=== PATIENT | female | born 1995 | race Caucasian/White ===

== ENCOUNTER 2017-01-24 17:04 | Inpatient (IN) | payer MEDICAID, OTHER ==
[~2017-01-24] VITALS: Ht 152.4 cm; Wt 68.8 kg
[2017-01-24 17:29] VITALS: BP 100/59; PULSE 130; RESP 20
[2017-01-24 17:30] VITALS: Ht 152.4 cm; Wt 68.8 kg
[2017-01-24] MEDS ORDERED: FER325 PO (17:32)
[2017-01-24] MEDS ORDERED: PREN-93 PO (17:32)
[2017-01-24] MEDS ORDERED: CALC600T11 PO (17:33)
[2017-01-24] MEDS ORDERED: ACETAMINOPHEN 1000MG/100ML IV 100 ML IVPB ONE (18:30)
[2017-01-24] MEDS ORDERED: LACTATED RINGER'S 1,000 ML IV SCH (18:30)
[2017-01-24 19:05] LABS: ADD SCAN DIFF NO
[2017-01-24 19:07] LABS: ABNORMAL IP MESSAGE 1; BASOPHILS % 0.1 % (0.0-2.0); EOSINOPHILS % 0.2 % (0.0-7.0); HEMATOCRIT 35.5 % (37.0-47.0); HEMOGLOBIN 11.7 g/dl (12.0-16.0); LYMPHOCYTES # 0.4 10^3/ul (0.8-2.9); LYMPHOCYTES % 4.5 % (15.0-51.0); MEAN CORPUSCULAR HEMOGLOBIN 29.8 pg (29.0-33.0); MEAN CORPUSCULAR VOLUME 90.3 fl (82.0-101.0); MEAN PLATELET VOLUME 10.2 fl (7.4-10.4); MONOCYTE # 0.5 10^3/ul (0.3-0.9); MONOCYTES % 5.7 % (0.0-11.0); NEUTROPHILS % 88.9 % (39.0-77.0); PLATELET COUNT 193 10^3/UL (140-415); RED BLOOD COUNT 3.93 10^6/ul (4.20-5.40); RED CELL DISTRIBUTION WIDTH 13.7 % (11.5-14.5); WHITE BLOOD COUNT 9.1 10^3/ul (4.8-10.8)
[2017-01-24 19:18] LABS: ADD UMIC YES; URINE BILIRUBIN (Dip) NEGATIVE (NEGATIVE); URINE BLOOD (Dip) NEGATIVE (NEGATIVE); URINE COLOR LT. YELLOW (YELLOW); URINE GLUCOSE (Dip) NEGATIVE (NEGATIVE); URINE KETONES (Dip) NEGATIVE (NEGATIVE); URINE LEUKOCYTE ESTERASE (Dip) TRACE (NEGATIVE); URINE NITRITE (Dip) NEGATIVE (NEGATIVE); URINE TOTAL PROTEIN (Dip) NEGATIVE (NEGATIVE); URINE UROBILINOGEN (Dip) 0.2 E.U./dL (0.1-1.0)
[2017-01-24] MEDS ORDERED: SOD CHLORIDE 0.9% 1,000 ML IV SCH (19:30)
[2017-01-24 19:42] LABS: BACTERIA,URINE FEW; SQUAMOUS EPITHELIAL CELL,UR MODERATE; URINE RBCS NONE SEEN /HPF (0)
--- NOTE | 2017-01-24 19:50 | HP ---
Date/Time of Note Date/Time of Note DATE: 01/24/17 TIME: 19:41 OB - History Hx of Present Free Text/Dictation C/O onset of fever started [id number] Am 01/24/17 Denies GI and symptoms Estimated Due Date: Jun 05, 2017 : 3 Para: 1 Spontaneous : 1 Care: Other (uneventful) Ultrasounds: Other (no information ) Obstetrical Complications: Other (claims none ) Medical Complications: Other (claims none ) Past Family/Social History * Past Medical, Surgical, Family and Obstetric Histories reviewed from chart. OB Admission Exam Vital Signs Vital Signs Vital Signs Date Time Temp Pulse Resp B/P Pulse Ox O2 Delivery O2 Flow Rate FiO2 01/24/17 17:29 100.1 130 20 100/59 Room Air Physical Exam HEENT: WNL Heart: Rhythm Normal Lungs: Clear, Equal Abdomen: WNL Extremities: Normal Reflexes: Normal Cervical Dilatation: None Effacement: 0% Station: Ballotable Membranes: Intact Last 72 hours Lab Results CBC & BMP 01/24/17 18:43 OB Assessment/Plan Reason for admission: other Other Assessment: fever possible GI or symptoms Other plan: IV ABs temperature control blood + urine culture U/S + cervical length SANDRA SEVERINO MD Jan 24, 2017 19:50
--- NOTE | 2017-01-24 20:20 | RADRPT ---
PROCEDURE: US OB limited. CLINICAL INDICATION: Pain. TECHNIQUE: Multiple transabdominal sonographic images of the pelvis were obtained. . COMPARISON: 01/16/2017. FINDINGS: There is a single intrauterine in cephalic presentation with heart motion of 168 andrews ts per minute. The placenta is anteriorly located without evidence of previa or abruption. Amnioti c fluid amount is normal with a single pocket measuring 5.0 cm. The cervix is closed and measures a pproximately 4.6 cm in length. Measurements were made in order to determine age. The results are as follows: BPD = 5.07 cm, 21 weeks 3 days HC = 18.72 cm, 21 weeks 0 days AC = 16.59 cm, 21 weeks 4 days FL = 3.59 cm, 21 weeks 3 days EFW = 425.27 g, 50 ounces, 61.9% IMPRESSION: Single live intrauterine measuring 21 weeks 3 days using current ultrasound measurements w ith an estimated date of delivery of 06/03/2017. RPTAT: HLST .Mary Matthew MD, Date Time Electronically viewed and signed by .Mary Matthew MD, on 01/24/2017 20:20 .T/
[2017-01-24] MEDS ORDERED: AL HYDROX/MG HYDROX/SIMETH 30 ML CUP PO PRN (20:30)
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
[2017-01-24] MEDS: SOD CHLORIDE 0.9% 1,000 ML IV SCH (21:19)
[2017-01-24] MEDS: CEFTRIAXONE 1 GM/50 ML (PMX) 50 ML IVPB SCH (21:41)
[2017-01-24] MEDS: ACETAMINOPHEN 325 MG TAB PO PRN (23:37)
[2017-01-25] MEDS: SOD CHLORIDE 0.9% 1,000 ML IV SCH ×4 (03:08→19:15)
[2017-01-25] MEDS: ACETAMINOPHEN 325 MG TAB PO PRN ×3 (06:24→12:12)
[2017-01-25] MEDS: SENNA TAB PO SCH (09:00)
[2017-01-25] MEDS: DOCUSATE SODIUM 100 MG CAP PO SCH (09:00)
[2017-01-25] MEDS: MULTIVIT/MIN/FOLATE/IRON/PREN TAB PO SCH (09:00)
[2017-01-25] MEDS ORDERED: DIPHENOXYLATE/ATROPINE TAB PO PRN ×2 (13:30→17:00)
--- NOTE | 2017-01-25 13:54 | PN ---
Date/Time of Note Date/Time of Note DATE: 01/25/17 TIME: 13:52 OB Subjective Subjective Subjective No more C/O fever C/O diarrhea OB Objective Objective Objective VSS afebrile after admission P/E is unchanged OB Assessment/Plan Other Assessment: Fever, possibly GI origin Other plan: continue to observe and Rx symptomatically until culture results are back SANDRA SEVERINO MD Jan 25, 2017 13:54
[2017-01-25 14:16] LABS: ADD SCAN DIFF NO
[2017-01-25 14:22] LABS: BASOPHILS % 0.1 % (0.0-2.0); HEMATOCRIT 29.9 % (37.0-47.0); LYMPHOCYTES # 0.8 10^3/ul (0.8-2.9); LYMPHOCYTES % 8.2 % (15.0-51.0); MEAN CORPUSCULAR HGB CONC 33.4 g/dl (32.0-37.0); MEAN CORPUSCULAR VOLUME 89.8 fl (82.0-101.0); MEAN PLATELET VOLUME 10.2 fl (7.4-10.4); MONOCYTE # 0.4 10^3/ul (0.3-0.9); MONOCYTES % 4.1 % (0.0-11.0); NEUTROPHIL # 8.9 10^3/ul (1.6-7.5); NEUTROPHILS % 87.2 % (39.0-77.0); PLATELET COUNT 165 10^3/UL (140-415); RED BLOOD COUNT 3.33 10^6/ul (4.20-5.40); RED CELL DISTRIBUTION WIDTH 13.8 % (11.5-14.5); WHITE BLOOD COUNT 10.2 10^3/ul (4.8-10.8)
[2017-01-25] MEDS: CEFTRIAXONE 1 GM/50 ML (PMX) 50 ML IVPB SCH (20:06)
[2017-01-26] MEDS: SOD CHLORIDE 0.9% 1,000 ML IV SCH ×3 (02:58→17:58)
[2017-01-26] MEDS: DOCUSATE SODIUM 100 MG CAP PO SCH (09:00)
[2017-01-26] MEDS: SENNA TAB PO SCH (09:00)
[2017-01-26] MEDS: MULTIVIT/MIN/FOLATE/IRON/PREN TAB PO SCH (09:51)
--- NOTE | 2017-01-26 17:20 | PN ---
Date/Time of Note Date/Time of Note DATE: 01/26/17 TIME: 17:18 OB Subjective Subjective Subjective wants to go home missing her daughter OB Objective Objective Objective T max: 100 patient is totally asymptomatic still has mod left shift on CBC will repeat CBC and continue to observe SANDRA SEVERINO MD Jan 26, 2017 17:20
[2017-01-26 17:26] LABS: ADD SCAN DIFF NO
[2017-01-26 17:35] LABS: BASOPHILS % 0.2 % (0.0-2.0); EOSINOPHILS % 0.3 % (0.0-7.0); HEMATOCRIT 31.3 % (37.0-47.0); HEMOGLOBIN 10.7 g/dl (12.0-16.0); LYMPHOCYTES # 1.4 10^3/ul (0.8-2.9); LYMPHOCYTES % 23.5 % (15.0-51.0); MEAN CORPUSCULAR HEMOGLOBIN 31.1 pg (29.0-33.0); MEAN CORPUSCULAR HGB CONC 34.2 g/dl (32.0-37.0); MEAN PLATELET VOLUME 10.3 fl (7.4-10.4); MONOCYTE # 0.4 10^3/ul (0.3-0.9); NEUTROPHIL # 4.2 10^3/ul (1.6-7.5); NEUTROPHILS % 68.8 % (39.0-77.0); PLATELET COUNT 164 10^3/UL (140-415); RED BLOOD COUNT 3.44 10^6/ul (4.20-5.40); RED CELL DISTRIBUTION WIDTH 14.2 % (11.5-14.5)
[2017-01-26] MEDS: ACETAMINOPHEN 325 MG TAB PO PRN (19:38)
[2017-01-26] MEDS: CEFTRIAXONE 1 GM/50 ML (PMX) 50 ML IVPB SCH (19:39)
[2017-01-27] MEDS: SOD CHLORIDE 0.9% 1,000 ML IV SCH ×2 (03:09→11:30)
[2017-01-27] MEDS: SENNA TAB PO SCH (09:01)
[2017-01-27] MEDS: DOCUSATE SODIUM 100 MG CAP PO SCH (09:01)
[2017-01-27] MEDS: MULTIVIT/MIN/FOLATE/IRON/PREN TAB PO SCH (09:01)
--- NOTE | 2017-01-27 16:29 | DS ---
Date/Time of Note Date/Time of Note DATE: 01/27/17 TIME: 16:27 Obstetrical Discharge Record Final Diagnosis Final Diagnosis: not delivered Other Final Diagnosis possible gastroenteritis Complications Infection Condition on Discharge Physical Assessment Last Vitals: see nurses notes afebrile >24 hours Voiding: Yes Bowel Movement: Yes Breast: Soft, non-tender, Filling Fundus: Other (gravid ) Abdomen and Incision: soft , gravid Episiotomy: NA Calf Tenderness: No Patient Condition: Good SANDRA SEVERINO MD Jan 27, 2017 16:29
--- NOTE | 2017-01-27 17:44 | DS ---
Date/Time of Note Date/Time of Note DATE: 01/27/17 TIME: 17:42 Discharge Summary Admission/Discharge Info Admit Date/Time Jan 24, 2017 at 19:45 Discharge Date/Time 01/27/2017 Final Diagnosis infection in GI tract Patient Condition: Good Hx of Present Illness 21 y/o female admitted for fever and had IV ab THERAPY Hospital Course uncomplicated Home Meds Reported Medications Calcium Carbonate* (Calcium Carbonate*) 600 MG Ca Tab, 600 MG PO, TAB 01/24/17 Ferrous Sulfate* (Ferrous Sulfate*) 325 Mg Tabec, 325 MG PO DAILY, TAB 01/24/17 Vit No.124/Iron/FA ( Vitamin Tablet) 1 Each Tablet, 1 EACH PO, TAB 01/24/17 Follow-up Plan Yared on clinic Primary Care Provider Care Physician No Primary SANDRA SEVERINO MD Jan 27, 2017 17:44
--- NOTE | 2017-01-27 18:33 | PD.PPDC ---
PHYSICAL THERAPIST Discharge Instruction Provider Information Physician Information 21 y/i female admitted with fever that responded to IV ABs Diagnosis Final Diagnosis: GI infection Condition Patient Condition: Good Diet Diet: Resume Regular Diet Activity/Restrictions Activity: Normal Activity May Shower Follow-up Follow-up with Physician: 3, Day/Days (in clinic) SANDRA SEVERINO MD Jan 27, 2017 18:33
== END 2017-01-27 19:25 | disposition home or self-care (01) | DRG 781 ==
LOC: OBT 17:04 → L-D 17:05 → OBT 19:45 → OBG 22:35
PROVIDERS: ADMIT Obstetrics & Gynecology; ATTEND Obstetrics & Gynecology
DX: O23.92 Unspecified genitourinary tract infection in pregnancy, second trimester (principal); K52.9 Noninfective gastroenteritis and colitis, unspecified; Z3A.21 21 weeks gestation of pregnancy
CPT/HCPCS: 36415; 76815; 76817; 81001; 85025; 87040; 87045; 87086; 96360; 96361; 96365; 96367; 96372; G0463; J0131; J0696; J7030; J7120

== ENCOUNTER 2017-04-21 19:15 | Outpatient (CLI) | payer OTHER ==
[~2017-04-21] VITALS: Ht 152.4 cm; Wt 75.4 kg
[~2017-04-21 19:15] MED LIST: CALC600T11 PO; FER325 PO; PREN-93 PO
[2017-04-21 20:21] VITALS: BP 100/50; PULSE 110; RESP 18
--- NOTE | 2017-04-21 22:21 | RADRPT ---
PROCEDURE: US OB. CLINICAL INDICATION: Pelvic pain and cramping TECHNIQUE: Pelvic ultrasound performed for biophysical profile. COMPARISON: No relevant examinations are available FINDINGS: The cervical os is closed with a normal cervical length of 3.6 cm. There is a single living intrauterine gestation in cephalic presentation. The heart beat is estimated at 143 bpm. Placenta is anterior and grade 1. There is no evidence of placenta previa or abruption. Biophysical profile score is 8/8 (breathing=2, movement=2, tone =2, fluid volume=2). Amniotic fluid volume is within normal limits, with JONG = 18.4 cm. IMPRESSION: 1. Biophysical profile score 8/8. 2. Cervical length measured 3.6 cm. 3. Amniotic fluid index 18.4 cm. Physician Dariana Date Time Electronically viewed and signed by Physician Dariana on 04/21/2017 22:20 /
[2017-04-21 22:25] LABS: ADD UMIC NO; UR ASCORBIC ACID NEGATIVE (NEGATIVE); UR BILIRUBIN (Dip) NEGATIVE (NEGATIVE); UR BLOOD (Dip) NEGATIVE (NEGATIVE); UR CLARITY CLEAR (CLEAR); UR COLOR YELLOW (YELLOW); UR GLUCOSE (Dip) NEGATIVE (NEGATIVE); UR KETONES (Dip) NEGATIVE (NEGATIVE); UR LEUKOCYTE ESTERASE (Dip) NEGATIVE Leu/ul (NEGATIVE); UR NITRITE (Dip) NEGATIVE (NEGATIVE); UR SPECIFIC GRAVITY (Dip) 1.011 (1.003-1.030); UR TOTAL PROTEIN (Dip) NEGATIVE (NEGATIVE); UR UROBILINOGEN (Dip) NEGATIVE (NEGATIVE)
--- NOTE | 2017-04-21 23:38 | PN ---
Triage Information Date/Time April 21, 2017 Reason for visit: 21-year-old female 3 para 1 at 33 weeks gestation refer to OB triage for complaint of uterine contractions and pressure during eating in a.m. of admission which occurred every 30 minutes lasting 2 or 3 hours Weeks of Gestation 33 /Para 3 para 1 Diabetes: none Hypertention: none Objective Vital Signs Date Time Temp Pulse Resp B/P Pulse Ox O2 Delivery O2 Flow Rate FiO2 04/21/17 20:21 97.9 110 18 100/50 Room Air Heart Rate: 140's Heart Rate Comments Reactive Contractions: None Exam Long and closed, posterior cervical Results/Medications Results 24 hrs Laboratory Tests Test 04/21/17 21:05 Urine Color YELLOW Urine Clarity CLEAR Urine pH 5.0 Urine Specific [place] 1.011 Urine Ketones NEGATIVE Urine Nitrite NEGATIVE Urine Bilirubin NEGATIVE Urine Urobilinogen NEGATIVE Urine Leukocyte Esterase NEGATIVE Urine Hemoglobin NEGATIVE Urine Glucose NEGATIVE Urine Total Protein NEGATIVE Imaging Results 1. Biophysical profile score 8/8. 2. Cervical length measured 3.6 cm. 3. Amniotic fluid index 18.4 cm. Disposition: Discharge Assessment/Plan After consult with the patient patient expressed the desire that she wanted to go home We will follow patient as outpatient Recommended to patient should any symptoms recur refer back to OB triage SANDRA SEVERINO MD Apr 21, 2017 23:38
--- NOTE | 2017-04-22 03:41 | TRIAGE ---
OB Triage Datetime Report Generated by CPN: 04/22/2017 03:40 Datetime: 04/21/2017 23:26 Stage of : OB Triage Labor Evaluation Frequency: 0 Monitor Mode: External Resting Tone Sexton: Relaxed Heart Rate FHR Baseline Rate: 120 Variability: Moderate 6-25 bpm Accelerations: 15X15 Decelerations: None Category: Category I Pain Presence: None/Denies Pain Type: N/A Datetime: 04/21/2017 23:24 Monitor Mode: External Monitor Mode: External US Datetime: 04/21/2017 23:13 Comments: Pt change of poition. Maternal HR captured Datetime: 04/21/2017 22:48 Monitor Mode: External Datetime: 04/21/2017 22:46 Stage of : OB Triage Datetime: 04/21/2017 22:21 Stage of : OB Triage Datetime: 04/21/2017 22:20 Stage of : OB Triage Labor Evaluation Frequency: 0 Monitor Mode: External Resting Tone Sexton: Relaxed Heart Rate FHR Baseline Rate: 120 Monitor Mode: External US Variability: Moderate 6-25 bpm Accelerations: 15X15 Decelerations: None Category: Category I Pain Presence: None/Denies Pain Type: N/A Datetime: 04/21/2017 21:44 Monitor Mode: External US Datetime: 04/21/2017 21:36 Monitor Mode: External Datetime: 04/21/2017 21:27 Monitor Mode: External US Datetime: 04/21/2017 21:07 Monitor Mode: External US Datetime: 04/21/2017 20:52 Stage of : OB Triage Datetime: 04/21/2017 20:39 Stage of : OB Triage Datetime: 04/21/2017 20:32 Monitor Mode: External US Datetime: 04/21/2017 20:14 Stage of : OB Triage Labor Evaluation Frequency: X1 Monitor Mode: External Duration (sec)2399: 40 Quality: Mild Resting Tone Sexton: Relaxed Heart Rate FHR Baseline Rate: 135 Monitor Mode: External US Variability: Moderate 6-25 bpm Accelerations: 15X15 Decelerations: None Category: Category I Datetime: 04/21/2017 20:00 Assessment Type: Triage Maternal Assessment Level of Consciousness: Fully Conscious DTR's/Clonus: DTRs 2+; No Clonus Headache: Denies Blurred Vision: No Respiratory Effort: Unlabored Breath Sounds, Left: Clear and Equal Breath Sounds, Right: Clear and Equal Nausea/Vomiting: Denies RUQ Epigastric Pain: Denies Lower Extremities Edema: None Degree: None Upper Extremities Edema: None Degree: None Facial Edema: None Fall Risk Assessment History of Falling: (0) No Secondary Diagnosis: (0) No Ambulatory Aid: (0) Bedrest/Nurse Assist IV Therapy: (0) No Gait: (0) Normal/Bedrest/Immobile Mental Status: (0) Oriented to Own Ability Fall Score: 0 Fall Risk Score Definition: No Risk: No action required Datetime: 04/21/2017 19:55 Time of Arrival: 04/21/2017 19:05 EGA: 33.4 Arrived By: Wheelchair Arrived From: Home Chief Complaint: cramping, back pain Movement: Present Contractions: Occasional Time Contractions Began: 04/21/2017 16:00 Contractions: q 30 min Rupture of Membranes: Denies Vaginal Bleeding: None Vaginal Discharge: Denies Recent Sexual Intercouse: Denies Abdominal Trauma: Not Applicable Patient Complaints: Cramping; Back Pain Time Provider Notified: 04/22/2017 20:26 Provider Notified: BECKI Initial Plan: VS, EFM, CL, BPP, PO HYDRATION, UA Datetime: 04/21/2017 19:49 Stage of : OB Triage Monitor Mode: External Contraction Comments: APPLIED Monitor Mode: External US Comments: APPLIED Datetime: 04/21/2017 19:20 Stage of : OB Triage Datetime: 01/27/2017 16:00 Temperature Route: Oral Datetime: 01/27/2017 12:00 Temperature Route: Oral Datetime: 01/27/2017 10:00 Comments: FH TONES 126 TO 136 Datetime: 01/27/2017 07:44 Maternal Assessment Level of Consciousness: Fully Conscious DTR's/Clonus: DTRs 2+; No Clonus Headache: Denies Breath Sounds, Left: Clear and Equal Breath Sounds, Right: Clear and Equal Nausea/Vomiting: Denies RUQ Epigastric Pain: Denies Temperature Route: Oral Datetime: 01/27/2017 07:32 Assessment Type: Ongoing Assessment Blurred Vision: No Respiratory Effort: Unlabored; Regular Rhythm; Equal Expansion Lower Extremities Edema: None Degree: None Upper Extremities Edema: None Degree: None Facial Edema: None Fall Risk Assessment History of Falling: (0) No Secondary Diagnosis: (0) No Ambulatory Aid: (0) Bedrest/Nurse Assist Gait: (0) Normal/Bedrest/Immobile Mental Status: (0) Oriented to Own Ability Datetime: 01/27/2017 05:57 Stage of : OB Triage Temperature Route: Oral Datetime: 01/27/2017 00:06 Stage of : Antepartum Temperature Route: Oral Datetime: 01/26/2017 23:00 Stage of : Antepartum Datetime: 01/26/2017 21:38 Heart Rate FHR Baseline Rate: 135 Datetime: 01/26/2017 21:20 Pain Presence: None/Denies (Annotations: PT VERBALIZED PAIN RELIEF WITH PO MEDS. PAIN 0/10 ON A SC JL.) Datetime: 01/26/2017 19:35 Temperature Route: Oral Datetime: 01/26/2017 19:15 Assessment Type: Ongoing Assessment Maternal Assessment Level of Consciousness: Fully Conscious DTR's/Clonus: DTRs 2+; No Clonus Headache: Generalized Blurred Vision: No Respiratory Effort: Unlabored; Regular Rhythm; Equal Expansion Breath Sounds, Left: Clear and Equal Breath Sounds, Right: Clear and Equal Nausea/Vomiting: Denies RUQ Epigastric Pain: Denies Lower Extremities Edema: None Degree: None Upper Extremities Edema: None Degree: None Facial Edema: None Fall Risk Assessment History of Falling: (0) No Secondary Diagnosis: (0) No Ambulatory Aid: (0) Bedrest/Nurse Assist IV Therapy: (0) No Gait: (0) Normal/Bedrest/Immobile Mental Status: (0) Oriented to Own Ability Fall Score: 0 Fall Risk Score Definition: No Risk: No action required Datetime: 01/26/2017 15:58 Pain Presence: None/Denies Datetime: 01/26/2017 12:34 Pain Presence: None/Denies Datetime: 01/26/2017 08:43 Assessment Type: Ongoing Assessment Maternal Assessment Level of Consciousness: Fully Conscious DTR's/Clonus: DTRs 2+; No Clonus Headache: Denies Blurred Vision: No Respiratory Effort: Unlabored; Regular Rhythm; Equal Expansion Breath Sounds, Left: Clear and Equal Breath Sounds, Right: Clear and Equal Nausea/Vomiting: Denies RUQ Epigastric Pain: Denies Facial Edema: None Fall Risk Assessment History of Falling: (0) No Secondary Diagnosis: (0) No Ambulatory Aid: (0) Bedrest/Nurse Assist IV Therapy: (0) No Gait: (0) Normal/Bedrest/Immobile Mental Status: (0) Oriented to Own Ability Fall Score: 0 Fall Risk Score Definition: No Risk: No action required Datetime: 01/26/2017 08:41 Labor Evaluation Frequency: 0 Monitor Mode: External Resting Tone Sexton: Relaxed Heart Rate FHR Baseline Rate: 140 Comments: aga Pain Presence: None/Denies Datetime: 01/26/2017 07:33 Labor Evaluation Frequency: 0 Monitor Mode: External Resting Tone Sexton: Relaxed Datetime: 01/26/2017 07:00 Labor Evaluation Frequency: NONE Monitor Mode: External Resting Tone Sexton: Relaxed Pain Presence: None/Denies Pain Type: N/A Datetime: 01/26/2017 05:57 Labor Evaluation Frequency: NONE Monitor Mode: External Resting Tone Sexton: Relaxed Pain Presence: None/Denies Pain Type: N/A Datetime: 01/26/2017 05:00 Labor Evaluation Frequency: NONE Monitor Mode: External Resting Tone Sexton: Relaxed Pain Presence: None/Denies Pain Type: N/A Datetime: 01/26/2017 03:58 Stage of : Antepartum Temperature Route: Oral Labor Evaluation Frequency: NONE Monitor Mode: External Resting Tone Sexton: Relaxed Pain Presence: None/Denies Pain Type: N/A Datetime: 01/26/2017 02:00 Labor Evaluation Frequency: NONE Monitor Mode: External Resting Tone Sexton: Relaxed Pain Presence: None/Denies Pain Type: N/A Datetime: 01/26/2017 01:10 Stage of : Antepartum Datetime: 01/26/2017 01:00 Monitor Mode: External Resting Tone Sexton: Relaxed Pain Presence: None/Denies Pain Type: N/A Datetime: 01/26/2017 00:00 Labor Evaluation Frequency: NONE Monitor Mode: External Resting Tone Sexton: Relaxed Pain Presence: None/Denies Pain Type: N/A Datetime: 01/25/2017 23:39 Stage of : Antepartum Temperature Route: Oral Datetime: 01/25/2017 23:33 Pain Presence: None/Denies Pain Type: N/A Datetime: 01/25/2017 23:00 Labor Evaluation Frequency: N/A Monitor Mode: External Resting Tone Sexton: Relaxed Contraction Comments: Uterine activity noted. Datetime: 01/25/2017 21:57 Stage of : Antepartum Labor Evaluation Frequency: NONE Monitor Mode: External Resting Tone Sexton: Relaxed Datetime: 01/25/2017 21:00 Labor Evaluation Frequency: NONE Monitor Mode: External Resting Tone Sexton: Relaxed Pain Presence: None/Denies Pain Type: N/A Datetime: 01/25/2017 20:36 Stage of : Antepartum Heart Rate FHR Baseline Rate: 140 Monitor Mode: External US Datetime: 01/25/2017 20:06 Stage of : Antepartum Datetime: 01/25/2017 20:00 Labor Evaluation Frequency: NONE Monitor Mode: External Resting Tone Sexton: Relaxed Pain Presence: None/Denies Pain Type: N/A Datetime: 01/25/2017 19:24 Stage of : Antepartum Assessment Type: Ongoing Assessment Maternal Assessment Level of Consciousness: Fully Conscious DTR's/Clonus: DTRs 2+; No Clonus Headache: Denies Blurred Vision: No Respiratory Effort: Unlabored; Regular Rhythm; Equal Expansion Breath Sounds, Left: Clear and Equal Breath Sounds, Right: Clear and Equal Nausea/Vomiting: Denies RUQ Epigastric Pain: Denies Lower Extremities Edema: None Degree: None Upper Extremities Edema: None Degree: None Facial Edema: None Temperature Route: Oral Fall Risk Assessment History of Falling: (0) No Secondary Diagnosis: (0) No Ambulatory Aid: (0) Bedrest/Nurse Assist IV Therapy: (0) No Gait: (0) Normal/Bedrest/Immobile Mental Status: (0) Oriented to Own Ability Fall Score: 0 Fall Risk Score Definition: No Risk: No action required Contraction Comments: PT DENIES CRAMPING Comments: PT STATES + FM Pain Presence: None/Denies Pain Type: N/A Datetime: 01/25/2017 18:00 Labor Evaluation Frequency: 0 Monitor Mode: External Datetime: 01/25/2017 17:00 Labor Evaluation Frequency: 0 Monitor Mode: External Datetime: 01/25/2017 16:33 Stage of : Antepartum Temperature Route: Oral Labor Evaluation Frequency: 0 Monitor Mode: External Pain Assessment Pain Scale: 0 Pain Presence: None/Denies Datetime: 01/25/2017 16:05 Stage of : Antepartum Datetime: 01/25/2017 16:00 Labor Evaluation Frequency: 0 Monitor Mode: External Datetime: 01/25/2017 15:00 Labor Evaluation Frequency: 0 Monitor Mode: External Datetime: 01/25/2017 14:04 Labor Evaluation Frequency: 0 Monitor Mode: External Resting Tone Sexton: Relaxed Monitor Mode: External US (Annotations: 135 BPM STRONG AND REGULAR,PT FELT MOVEMENT) Datetime: 01/25/2017 13:54 Labor Evaluation Frequency: 0 Monitor Mode: External Datetime: 01/25/2017 13:53 Stage of : Antepartum Temperature Route: Oral Pain Assessment Pain Scale: 0 Pain Presence: None/Denies Datetime: 01/25/2017 13:00 Labor Evaluation Frequency: 0 Monitor Mode: External Datetime: 01/25/2017 12:08 Stage of : Antepartum Temperature Route: Oral Pain Presence: None/Denies Datetime: 01/25/2017 12:04 Stage of : Antepartum Datetime: 01/25/2017 12:00 Labor Evaluation Frequency: 0 Monitor Mode: External Datetime: 01/25/2017 11:05 Labor Evaluation Frequency: X1 (Annotations: FELT BY PT) Monitor Mode: External Datetime: 01/25/2017 10:32 Labor Evaluation Frequency: X4 Monitor Mode: External Duration (sec)2399: 40-60 Contraction Comments: PT DENIES CRAMPING,SLIGHTLY NAUSEOUS Datetime: 01/25/2017 09:49 Labor Evaluation Frequency: 0 Monitor Mode: External Datetime: 01/25/2017 09:30 Stage of : Antepartum Temperature Route: Oral Pain Assessment Pain Scale: 0 Pain Presence: None/Denies Datetime: 01/25/2017 09:00 Labor Evaluation Frequency: 0 Monitor Mode: External Datetime: 01/25/2017 08:17 Stage of : Antepartum Datetime: 01/25/2017 08:13 Stage of : Antepartum Datetime: 01/25/2017 08:00 Labor Evaluation Frequency: 0 Monitor Mode: External Datetime: 01/25/2017 07:45 Assessment Type: Ongoing Assessment Maternal Assessment Level of Consciousness: Fully Conscious DTR's/Clonus: DTRs 2+; No Clonus Headache: Denies Blurred Vision: No Respiratory Effort: Unlabored; Regular Rhythm; Equal Expansion Breath Sounds, Left: Clear and Equal Breath Sounds, Right: Clear and Equal Nausea/Vomiting: Denies RUQ Epigastric Pain: Denies Lower Extremities Edema: None Degree: None Upper Extremities Edema: None Degree: None Facial Edema: None Fall Risk Assessment History of Falling: (0) No Secondary Diagnosis: (0) No Ambulatory Aid: (0) Bedrest/Nurse Assist IV Therapy: (20) Yes Gait: (0) Normal/Bedrest/Immobile Mental Status: (0) Oriented to Own Ability Fall Score: 20 Fall Risk Score Definition: No Risk: No action required Datetime: 01/25/2017 07:13 Stage of : Antepartum Temperature Route: Oral Pain Assessment Pain Scale: 0 Pain Presence: None/Denies Datetime: 01/25/2017 07:00 Labor Evaluation Frequency: 0 Monitor Mode: External Resting Tone Sexton: Relaxed Pain Presence: None/Denies Pain Type: N/A Datetime: 01/25/2017 06:27 Stage of : Antepartum Temperature Route: Oral Pain Presence: None/Denies Datetime: 01/25/2017 06:00 Labor Evaluation Frequency: 0 Monitor Mode: External Resting Tone Sexton: Relaxed Pain Presence: None/Denies Pain Type: N/A Datetime: 01/25/2017 05:00 Labor Evaluation Frequency: 0 Monitor Mode: External Duration (sec)2399: denies Resting Tone Sexton: Relaxed Datetime: 01/25/2017 04:00 Labor Evaluation Frequency: 0 Monitor Mode: External Duration (sec)2399: denies Resting Tone Sexton: Relaxed Contraction Comments: some irritability noted. Pain Presence: None/Denies Pain Type: N/A Datetime: 01/25/2017 03:00 Labor Evaluation Frequency: x1 Monitor Mode: External Duration (sec)2399: 40 Quality: Mild Resting Tone Sexton: Relaxed Pain Presence: None/Denies Pain Type: N/A Datetime: 01/25/2017 02:00 Labor Evaluation Frequency: 0 Monitor Mode: External Duration (sec)2399: denies Resting Tone Sexton: Relaxed Pain Presence: None/Denies Pain Type: N/A Datetime: 01/25/2017 01:00 Headache: Denies Blurred Vision: No Nausea/Vomiting: Denies Labor Evaluation Frequency: 0 Monitor Mode: External Duration (sec)2399: denies Resting Tone Sexton: Relaxed Pain Presence: None/Denies Pain Type: N/A Datetime: 01/25/2017 00:38 Temperature Route: Oral (Annotations: ice pack applied to forehead,underarms,will keep monitoring. ) Datetime: 01/25/2017 00:00 Labor Evaluation Frequency: 0 Monitor Mode: External Duration (sec)2399: denies Resting Tone Sexton: Relaxed Pain Presence: None/Denies Pain Type: N/A Datetime: 01/24/2017 23:00 Labor Evaluation Frequency: 0 Monitor Mode: External Duration (sec)2399: denies Resting Tone Sexton: Relaxed Pain Presence: None/Denies Pain Type: N/A Pain Relief Measures: Comfort Measures Datetime: 01/24/2017 22:07 Stage of : Antepartum Assessment Type: Ongoing Assessment Maternal Assessment Level of Consciousness: Fully Conscious DTR's/Clonus: DTRs 2+; No Clonus Headache: Denies Blurred Vision: No Respiratory Effort: Unlabored; Regular Rhythm; Equal Expansion Breath Sounds, Left: Clear and Equal Breath Sounds, Right: Clear and Equal Nausea/Vomiting: Denies RUQ Epigastric Pain: Denies Lower Extremities Edema: None Degree: None Upper Extremities Edema: None Degree: None Facial Edema: None Temperature Route: Oral Fall Risk Assessment History of Falling: (0) No Secondary Diagnosis: (0) No Ambulatory Aid: (0) Bedrest/Nurse Assist IV Therapy: (0) No Gait: (0) Normal/Bedrest/Immobile Mental Status: (0) Oriented to Own Ability Fall Score: 0 Fall Risk Score Definition: No Risk: No action required Pain Presence: None/Denies Pain Type: N/A Datetime: 01/24/2017 22:04 Stage of : Antepartum Datetime: 01/24/2017 22:03 Contraction Comments: ASSUMED CARE OF PT. Datetime: 01/24/2017 21:00 Labor Evaluation Frequency: 0 Monitor Mode: External Pattern: Normal: <= 5 Contractions in 10 Minutes Resting Tone Sexton: Relaxed Pain Assessment Pain Scale: 0 Pain Presence: None/Denies Pain Type: N/A Datetime: 01/24/2017 19:20 Stage of : OB Triage Maternal Assessment Level of Consciousness: Fully Conscious Headache: Denies Blurred Vision: No Nausea/Vomiting: Denies RUQ Epigastric Pain: Denies Monitor Mode: External Resting Tone Sexton: Relaxed Datetime: 01/24/2017 17:36 EGA: 21.1 Fall Score: 0 Fall Risk Score Definition: No Risk: No action required
== END 2017-04-21 23:45 | disposition home or self-care (01) ==
LOC: L-D 19:15 → OBT 19:15
PROVIDERS: ATTEND Obstetrics & Gynecology
DX: O26.893 Other specified pregnancy related conditions, third trimester (principal); R10.9 Unspecified abdominal pain; M54.9 Dorsalgia, unspecified; Z3A.33 33 weeks gestation of pregnancy
CPT/HCPCS: 76817; 76818; 81003; Z7500; G0463

== ENCOUNTER 2017-06-06 17:30 | Inpatient (IN) | payer OTHER ==
[~2017-06-06] VITALS: Ht 152.4 cm; Wt 79.6 kg
[~2017-06-06 17:30] MED LIST changes: -CALC600T11 PO; +CALC600T24 PO
[2017-06-06 18:40] VITALS: Ht 152.4 cm; Wt 79.6 kg
[2017-06-06 18:41] VITALS: BP 127/58; PULSE 86; RESP 18
[2017-06-06 18:57] LABS: BASOPHILS % 0.3 % (0.0-2.0); EOSINOPHILS # 0.1 10^3/ul (0.0-0.5); EOSINOPHILS % 1.2 % (0.0-7.0); HEMATOCRIT 30.5 % (37.0-47.0); HEMOGLOBIN 9.9 g/dl (12.0-16.0); LYMPHOCYTES # 1.6 10^3/ul (0.8-2.9); MEAN CORPUSCULAR HEMOGLOBIN 27.1 pg (29.0-33.0); MEAN CORPUSCULAR HGB CONC 32.5 g/dl (32.0-37.0); MEAN CORPUSCULAR VOLUME 83.6 fl (82.0-101.0); MEAN PLATELET VOLUME 11.4 fl (7.4-10.4); MONOCYTE # 0.9 10^3/ul (0.3-0.9); MONOCYTES % 9.5 % (0.0-11.0); NEUTROPHIL # 6.8 10^3/ul (1.6-7.5); NEUTROPHILS % 71.8 % (39.0-77.0); PLATELET COUNT 262 10^3/UL (140-415); RED BLOOD COUNT 3.65 10^6/ul (4.20-5.40); RED CELL DISTRIBUTION WIDTH 16.6 % (11.5-14.5); WHITE BLOOD COUNT 9.5 10^3/ul (4.8-10.8)
[2017-06-06] MEDS ORDERED: METHYLERGONOVINE 0.2 MG INJ IM PRN (19:00)
[2017-06-06] MEDS ORDERED: MISOPROSTOL 200 MCG TAB PR PRN (19:00)
[2017-06-06] MEDS ORDERED: OXYTOCIN 30 UNITS/LR 500 ML IV PRN (19:00)
[2017-06-06] MEDS ORDERED: CARBOPROST 250 MCG INJ IM PRN (19:00)
[2017-06-06] MEDS ORDERED: IBUPROFEN 600 MG TAB PO PRN (19:00)
[2017-06-06] MEDS ORDERED: LIDOCAINE 1% (MPF) 30 ML INJ INJ PRN (19:00)
[2017-06-06] MEDS ORDERED: MINERAL OIL LIGHT 10 ML VIAL TOP PRN (19:00)
[2017-06-06] MEDS ORDERED: BUTORPHANOL 2 MG INJ IV PRN (19:00)
[2017-06-06 19:12] LABS: INR 0.95; PROTIME 12.7 Sec (12.2-14.2)
[2017-06-06 19:13] LABS: PARTIAL THROMBOPLASTIN TIME 27.4 Sec (25.0-35.0)
[2017-06-06] MEDS ORDERED: DINOPROSTONE 10 MG VAG SUPP VAG ONE (20:00)
[2017-06-06 20:18] LABS: BARBITURATES Negative (NEGATIVE); BENZODIAZEPINES Negative (NEGATIVE); CANNABINOIDS Negative (NEGATIVE); COCAINE Negative (NEGATIVE); OPIATES Negative (NEGATIVE)
[2017-06-06] MEDS: LACTATED RINGER'S 1,000 ML IV SCH (20:23)
[2017-06-06] MEDS ORDERED: LACTATED RINGER'S 1,000 ML IV PRN (22:00)
[2017-06-07] MEDS: LACTATED RINGER'S 1,000 ML IV SCH ×2 (02:07→09:27)
[2017-06-07] MEDS ORDERED: FENTAnyl 2MCG/ML-ROPIV 0.2% 100 ML ONE (08:43)
[2017-06-07] MEDS ORDERED: ONDANSETRON 4 MG INJ IV PRN (09:00)
[2017-06-07] MEDS ORDERED: FENTAnyl 2MCG/ML-ROPIV 0.2% 100 ML BAG EPI SCH (09:00)
[2017-06-07] MEDS ORDERED: DIPHENHYDRAMINE 50 MG INJ IV PRN (09:00)
[2017-06-07] MEDS ORDERED: NALOXONE (0.4 MG/ML) INJ IV PRN (09:00)
[2017-06-07] MEDS: LACTATED RINGER'S 1,000 ML IV* SCH ×2 (10:34→14:38)
--- NOTE | 2017-06-07 10:38 | LDN ---
Date/Time of Note Date/Time of Note DATE: 06/07/17 TIME: 10:36 Delivery Summary of a viable baby girl weighing 3550 grams or 7# 13 oz, 20" long, and with Apgars of 9/9 Weeks of Gestation 40w 2d Placenta Delivered: Spontaneously Meconium: none Episiotomy: No Perineal laceration: 0 Laceration repair: First degree vaginal laceration repaired with 2-0 chromic. Anesthesia type: Epidural Estimated blood loss: 150 All needle counts correct: Yes Any foreign bodies felt in the: No (vagina) Problems: Delivery Information Sex Sex: male Apgars 1 Minute: 9 5 Minute: 9 Suctioning Nose & mouth suctioned at grover: Yes Delee suction performed: No Umbilical Cord Umbilical cord with: 3 Vessels Cord presentations: nuchal cord Nuchal cord present X: 1 Cord Blood was obtained: Yes Mother & Baby Disposition Disposition Mom & Baby to Maternity; Good: Yes Baby to NICU: No LISA LOVELL MD Jun 07, 2017 10:38
--- NOTE | 2017-06-07 10:43 | HP ---
Date/Time of Note Date/Time of Note DATE: 06/07/17 TIME: 10:38 OB - History Hx of Present Free Text/Dictation 21 y.o. A1 admitted for induction of labor for postdates. Estimated Due Date: Jun 05, 2017 : 3 Para: 1 Spontaneous : 0 Therapeutic : 1 Care: Good Care Ultrasounds: Normal mid trimester US Obstetrical Complications: None Medical Complications: None Past Family/Social History * Past Medical, Surgical, Family and Obstetric Histories reviewed from chart. Blood Type: A+ Rubella: immune RPR/VDRL: Negative GBS Status: Negative HBsAG: Negative OB Admission Exam Vital Signs Vital Signs Vital Signs Date Time Temp Pulse Resp B/P Pulse Ox O2 Delivery O2 Flow Rate FiO2 06/06/17 18:41 98.0 86 18 127/58 Room Air Physical Exam HEENT: WNL Heart: Rhythm Normal Lungs: Clear Abdomen: WNL Extremities: Normal Reflexes: Normal Cervical Dilatation: 1cm Effacement: 50% Station: -2 Membranes: Intact Amniotic Fluid: Clear Heart Rate: 130's Accelerations: Accelerations Present Decelerations: No Decelerations Varibility: Moderate Contractions on Admission: 6-10 Minutes Apart Last 72 hours Lab Results CBC & BMP 06/06/17 18:27 OB Assessment/Plan Reason for admission: induction of labor Other Assessment: Postdates Plan: Induction Induction Method: per Pitocin Protocol (to follow Cervidil induction as needed. ) LISA LOVELL MD Jun 07, 2017 10:42
[2017-06-07] MEDS ORDERED: MISOPROSTOL 200 MCG TAB PR PRN (11:00)
[2017-06-07] MEDS ORDERED: METHYLERGONOVINE 0.2 MG INJ IM PRN (11:00)
[2017-06-07] MEDS ORDERED: OXYTOCIN 30 UNITS/LR 500 ML IV PRN (11:00)
[2017-06-07] MEDS ORDERED: OXYTOCIN 30 UNITS/LR 500 ML IV SCH (11:00)
[2017-06-07] MEDS ORDERED: HYDROCODONE/APAP (5/325) TAB PO PRN (11:00)
[2017-06-07] MEDS ORDERED: LANOLIN 7 GM TUBE TOP PRN (11:00)
[2017-06-07] MEDS ORDERED: CARBOPROST 250 MCG INJ IM PRN (11:00)
[2017-06-07 12:10] VITALS: BP 114/84; PULSE 66; RESP 18
[2017-06-07 12:49] VITALS: BP 125/84; PULSE 66; RESP 18
[2017-06-07] MEDS: IBUPROFEN 600 MG TAB PO SCH ×3 (14:13→23:26)
[2017-06-07 16:59] VITALS: BP 128/68; PULSE 84; RESP 18
[2017-06-07] MEDS: CEPHALEXIN 500 MG CAP PO SCH ×2 (17:32→23:26)
[2017-06-07 20:00] VITALS: BP 115/64; PULSE 72; RESP 20
[2017-06-08] MEDS: LACTATED RINGER'S 1,000 ML IV* SCH ×3 (02:34→18:34)
[2017-06-08 05:05] VITALS: BP 121/75; PULSE 86; RESP 20
[2017-06-08] MEDS: CEPHALEXIN 500 MG CAP PO SCH ×3 (05:20→17:47)
[2017-06-08] MEDS: IBUPROFEN 600 MG TAB PO SCH ×3 (05:20→17:47)
[2017-06-08 08:10] VITALS: BP 120/74; PULSE 79; RESP 18
[2017-06-08 08:23] LABS: BASOPHILS % 0.5 % (0.0-2.0); EOSINOPHILS # 0.1 10^3/ul (0.0-0.5); EOSINOPHILS % 1.4 % (0.0-7.0); HEMOGLOBIN 9.1 g/dl (12.0-16.0); LYMPHOCYTES # 1.9 10^3/ul (0.8-2.9); LYMPHOCYTES % 21.4 % (15.0-51.0); MEAN CORPUSCULAR HEMOGLOBIN 26.7 pg (29.0-33.0); MEAN CORPUSCULAR HGB CONC 31.4 g/dl (32.0-37.0); MEAN PLATELET VOLUME 11.3 fl (7.4-10.4); MONOCYTE # 0.6 10^3/ul (0.3-0.9); MONOCYTES % 6.2 % (0.0-11.0); NEUTROPHIL # 6.2 10^3/ul (1.6-7.5); PLATELET COUNT 204 10^3/UL (140-415); RED BLOOD COUNT 3.41 10^6/ul (4.20-5.40); RED CELL DISTRIBUTION WIDTH 16.8 % (11.5-14.5); WHITE BLOOD COUNT 8.9 10^3/ul (4.8-10.8)
[2017-06-08 16:00] VITALS: BP 109/76; RESP 18
[2017-06-08 20:00] VITALS: BP 119/77; PULSE 79; RESP 16
--- NOTE | 2017-06-08 21:53 | PD.PPDC ---
JOB PLACEMENT OFFICER Discharge Instruction Condition Patient Condition: Good Diet Diet: Resume Regular Diet Activity/Restrictions Activity: Normal Activity May Shower Restrictions: No Sexual Activity Nothing in the Vagina No [place] No Tampons, douche Follow-up Follow-up with Physician: 6, Week/Weeks Return to clinic for SERVICE LINE COORDINATOR Instructions: Fever greater than 101 Chills Worsening abdominal pain Excessive Vaginal Bleeding OB Instructions: Breast Tenderness Depression LISA LOVELL MD Jun 08, 2017 21:53
--- NOTE | 2017-06-08 21:55 | DS ---
Date/Time of Note Date/Time of Note DATE: 06/08/17 TIME: 21:54 Obstetrical Discharge Record Final Diagnosis Final Diagnosis: Term delivered Vaginal Delivery Obstetrical Delivery: Spontaneous, Laceration, Repaired Complications Augmentation: Yes Induction: Yes Condition on Discharge Physical Assessment Last Vitals: T=98.0 BP 119/77 Voiding: Yes Bowel Movement: Yes Breast: Filling Fundus: Firm Episiotomy: Laceration intact. Calf Tenderness: No Patient Condition: Good LISA LOVELL MD Jun 08, 2017 21:55
[2017-06-09] MEDS: CEPHALEXIN 500 MG CAP PO SCH ×3 (00:02→12:36)
[2017-06-09] MEDS: IBUPROFEN 600 MG TAB PO SCH ×3 (00:02→12:36)
[2017-06-09] MEDS: LACTATED RINGER'S 1,000 ML IV* SCH ×2 (02:34→10:34)
[2017-06-09 04:30] VITALS: BP 107/70; PULSE 63; RESP 18
[2017-06-09 08:30] VITALS: BP 121/84; PULSE 75; RESP 17
[2017-06-09] MEDS ORDERED: DIPHTH/TET/ACEL PERTUSS (ADULT) 0.5 ML VIAL IM* ONE (09:00)
[2017-06-09] MEDS ORDERED: INFLUENZA VIRUS VACCINE 0.5 ML SYG IM* ONE (12:00)
== END 2017-06-09 13:10 | disposition home or self-care (01) | DRG 775 ==
LOC: L-D 17:39 → PP1 06-07 12:08
PROVIDERS: ADMIT Obstetrics & Gynecology; ATTEND Obstetrics & Gynecology
PROC: 10E0XZZ Delivery of Products of Conception, External Approach (ICD-10-PCS; principal; 2017-06-07)
PROC: 0UQGXZZ Repair Vagina, External Approach (ICD-10-PCS; 2017-06-07)
PROC: 3E0P3VZ Introduction of Hormone into Female Reproductive, Percutaneous Approach (ICD-10-PCS; 2017-06-07)
DX: O48.0 Post-term pregnancy (principal); O71.4 Obstetric high vaginal laceration alone; Z3A.40 40 weeks gestation of pregnancy; O69.81X0 Labor and delivery complicated by cord around neck, without compression, not applicable or unspecified; Z37.0 Single live birth
CPT/HCPCS: 62319; 80307; 85025; 85610; 85730; 86592; 86900; 86901; 87340; 90686; 90715; J0595; J2590; J3010; J7120